=== PATIENT | female | born 1960 | race Caucasian/White ===

== ENCOUNTER → 2017-02-17 | Outpatient (CLI) | payer BC ==
[2015-12-14 14:43] VITALS: BP 140/62
--- NOTE | 2017-02-17 15:40 | MRI ---
MRI of lumbar spine without contrast Indication: Chronic low back pain Comparison:None available Technique: Multiplanar multi-sequence MRI of the lumbar spine was obtained. Sagittal T1, sagittal T 2, and stir weighted images, axial T1, and axial T2 images were obtained. Findings: Lumbar spine demonstrates normal alignment without spondylolisthesis. There is no localizing bone ma rrow signal abnormality within the lumbar spine. Broad-based disk bulge and disk desiccation at L4-5 with a small annular tear/fissure within the posterior disc bulge seen on sagittal image 8. No prev ertebral or paraspinal soft tissue swelling or fluid collection. The conus has a normal termination. Limited visualization of the abdomen and pelvis demonstrates no acute inflammatory process. Small cy sts are noted within both kidneys. At T12-L1: Unremarkable At L1-L2: Unremarkable At L2-3: Unremarkable At L3-4: Mild bilateral facet arthropathy without spinal canal or neural foraminal narrowing. At L4-5: Broad-based disc bulge with moderate facet arthropathy causes mild spinal canal stenosis, t he moderate bilateral lateral recess compression and mild bilateral neural foraminal narrowing. At L5-S1: Unremarkable IMPRESSION: Broad-based disc bulge at L4-5 with suspected small annular tear within the posterior disc bulge cau sing mild spinal canal stenosis with moderate compression of bilateral lateral recesses and mild jossie ateral neural foraminal narrowing.
== END | disposition home or self-care (01) | DRG 552 ==
LOC: RAD 14:13
PROVIDERS: ATTEND Orthopaedic Surgery
DX: M54.17 Radiculopathy, lumbosacral region (principal); M54.5 Low back pain; R29.898 Other symptoms and signs involving the musculoskeletal system
CPT/HCPCS: 72148